=== PATIENT | female | born 1965 | race Caucasian/White ===

== ENCOUNTER 2025-05-08 18:40 | Inpatient (IN) | payer MEDICAID ==
[~2025-05-08] VITALS: Ht 160 cm; Wt 139.3 kg
--- NOTE | 2025-05-08 19:11 | ELECTROCARDIOGRAPH REPORT ---
[facility] [place] Test Date: 2025-05-08 Test Time: 18:45:19 Pat Name: AKHIL ALICEA Department: EMERGENCY ROOM Room: [place] [address] Gender: F Unhairer: JOSEMANUEL : 1965 Requested By: CHARO RODRIGUEZ Order Number: [id number] Reading MD: Dr. RACQUEL Manzanares Measurements Intervals Evans Rate: 80 P: 46 WV: 202 QRS: 68 QRSD: 82 T: 37 QT: 389 QTc: 449 Interpretive Statements Sinus rhythm Low voltage, precordial leads Anteroseptal infarct, old Minimal ST depression, inferior leads Borderline ST elevation, lateral leads Electronically Signed On 05-09-2025 19:40:[address] RACQUEL Manzanares Please click the below link to view image of tracing.
--- NOTE | 2025-05-08 19:13 | Physician Documentation ---
History of Present Illness Chief Complaint: Flank Pain Stated Complaint: TRANSFER NSTEMI Time Seen by MD: 18:55 Primary Medical Doctor: LOIDA SUAZO IN [place] Mode of Arrival: EMS HPI 59-year-old female, transfer from outside hospital with a kidney infection and NSTEMI The patient presented to an outside hospital with abdominal pain. She had an extensive workup which showed findings concerning for pyelonephritis. CT of the abdomen shows normal appendix but does show stranding around the kidney. She was given Levaquin. She also had a significantly elevated troponin, diagnosed with an NSTEMI. She was put on a heparin drip. She was given morphine and Phenergan during transport. Here in the ED, she continues to have right lower abdominal pain. She also reports having some central chest discomfort. She reports a history of esophageal spasms and use the nitroglycerin for that only. She denies history of heart problems. She also does have some current nausea. Medication Reconciliation Allergies: Coded Allergies: NSAIDS (Non-Steroidal Anti-Inflamma (Verified Allergy, Severe, 05/08/25) Penicillins (Verified Allergy, Severe, 05/08/25) Sulfa (Sulfonamide Antibiotics) (Verified Allergy, Severe, 05/08/25) ketorolac (Verified Allergy, Severe, 05/08/25) hydromorphone (Verified Allergy, Intermediate, 05/08/25) aspirin (Verified Allergy, Mild, 05/08/25) Past Medical History Past Medical History: High Cholesterol, Diabetes, Bipolar, Depression Past Surgical History: noncontributory Alcohol Use: None Drug Use: none Review of Systems Constitutional: Denies: fever Cardiovascular: Reports: chest pain Gastrointestinal: Reports: abdominal pain, nausea Physical Exam Vital Signs: Temperature: 97.8, Heart Rate: 81, Respiratory Rate: 16, BP: 147/87, Pulse Oximetry: 96, Weight: 139.300 Oxygen Flow Rate: 2.0 Physical Exam General: This is a pleasant and nontoxic appearing middle-aged woman sitting calmly in bed HEENT: Atraumatic, oropharynx is dry Heart: Regular rate and rhythm, normal-appearing peripheral perfusion Lungs: normal work of breathing, normal oxygen saturation on room air Abdomen: Soft, nondistended, significant tenderness to palpation in the right lower quadrant, with voluntary guarding, otherwise mild tenderness in the suprapubic region Neuro: Alert and oriented Psychiatric: Calm and cooperative with exam Progress Results/Orders Results/Orders Orders - CHARO RODRIGUEZ MD Hs Troponin I W Calculations (05/08/25 19:10) Cbc/Diff (05/08/25 19:10) CMP (05/08/25 19:10) Ondansetron Inj. (Zofran 4mg/2ml Vial) (05/08/25 19:15) Morphine 4mg/Ml Inj. (Morphine Inj.) (05/08/25 19:15) Nitroglycerin Sublingual Tab (Nitrostat (05/08/25 19:15) Completed Orders - CHARO RODRIGUEZ MD Electrocardiogram (05/08/25 19:10) Vital Signs 05/08/25 18:44 Temp 97.8 Pulse 81 Resp 16 B/P (MAP) 147/87 Pulse Ox 96 O2 Flow Rate 2.0 EKG/XRAY/CT/US/VASC/MRI EKG : Additional Comment I personally interpreted the EKG and this shows: Sinus rhythm, rate 80, no STEMI, QTC 449 Consults/PCP Consults/PCP : Additional Comment Consult: I spoke to the internal medicine service, for admission in the hospital Medical Decision Making Additional information obtaine: old records Findings Reviewed outside hospital records and workup Differential Dx:Considerations: Urinary tract infection, Urolithiasis Additional Comments Differential includes NSTEMI, STEMI Assessment The patient presents as a transfer with a kidney infection and NSTEMI. Here in the ED she does have some mild chest discomfort as well as nausea and abdominal pain. She was given nitro, morphine and Zofran. She will have labs repeated including troponin. She will be admitted to the medicine service for further workup and treatment and Cardiology consult. Departure Impression: Primary Impression: NSTEMI (non-ST elevated myocardial infarction) Additional Impression: Pyelonephritis Referrals: NO PRIMARY CARE PROVIDER (PCP) Signature Scribe Signature: na Attestation: CHARO Fragoso MD May 08, 2025 19:13
[2025-05-08] MEDS: ondansetron/PF 4mg/2ml inj IV ONE (19:25)
[2025-05-08] MEDS: morphine 4 MG/ML inj SYRINge IV ONE (19:26)
[2025-05-08 19:49] LABS: MEAN PLATELET VOLUME 8.6 FL (7.4-10.4); RED CELL DISTRIBUTION WIDTH 13.1 % (11.5-14.5)
[2025-05-08 20:09] LABS: CREATININE 0.79 MG/DL (0.40-0.90); TOTAL CARBON DIOXIDE 25.9 MMOL/L (24-32); eCRCL 62 ML/MIN; eGFR 74 ML/MIN
[2025-05-08] MEDS ORDERED: magnesium sulf-water 4G/100mL 100 ML IV PRN (20:50)
[2025-05-08] MEDS: PERFLUTREN PROTEIN-A MICROSPHR (Optison) 0.22 MG/ML 3ML VIAL IV ONE (20:50)
[2025-05-08] MEDS ORDERED: magnesium sulf-water 2g/50mL 50 ML IV PRN (20:50)
[2025-05-08] MEDS ORDERED: magnesium hydroxide 30ml (MOM) UD suspension PO PRN (20:50)
[2025-05-08] MEDS ORDERED: potassium Cl 20 mEq SR tablet PO PRN ×2 (20:50)
[2025-05-08] MEDS ORDERED: potassium Cl 40MEQ/1/2NS 520ml 520 ML IV PRN (20:50)
[2025-05-08] MEDS ORDERED: magnesium Cl slow-release 64mg tablet PO PRN (20:50)
[2025-05-08] MEDS ORDERED: mag hydrox/Alum hydrox/simeth 30ml oral suspension PO PRN (20:50)
[2025-05-08] MEDS ORDERED: DEXTROSE 15 GM of carb/4 tabs (each vial/BOTTLE has 4 tablets) PO PRN ×2 (20:55)
[2025-05-08] MEDS ORDERED: glucagon, human recombinant 1mg kit SUBCUT PRN (20:55)
[2025-05-08] MEDS ORDERED: dextrose 50%-water 50ml dispensing syringe IV PRN ×2 (20:55)
[2025-05-08] MEDS: pantoprazole 40mg Tablet.DR PO SCH (20:55)
--- NOTE | 2025-05-08 21:14 | HISTORY AND PHYSICAL-Residence ---
History & Physical Providers to CC Resident Creating Document: MAYRA TREJO, RES ~ History of Present Illness Primary Medical Doctor: LOIDA SUAZO IN [place] Reason for Admit\\Complaint: NSTEMI and right pyelonephritis History of Present Illness A 59 years old female with a past medical history of hypertension, T2 DM, hyperlipidemia, migraine, RLS, class 4 obesity BMI 54.4, TOMMIE, asthma, cervical spine herniated discs, peripheral neuropathy, s/p YONG+BSO, urinary incontinence, chronic generalized arthritis, bipolar disorder and depression, who was transferred from the [facility] with the concern of having NSTEMI and Right pyelonephritis. Her PCP is at [facility] in [place]. She endorsed that she has noticed the right lower abdominal pain while she was going to the bathroom suddenly, started with intense sharp pain radiating to the back and left lower abd quadrant and radiating down to her inner thigh and private part. She denied for any new urinary frequency urgency, dysuria although she noticed some blood-tinged discharge in her urine. So, she went to the clinic to find out for the possible appendicitis since she had recurrent previous appendix inflammation before presented with the mimicing clinical symptoms but she did not require for any appendectomy at that time. She testedher urine for UTI which was cleared. Over the next 4 days, on this morning, she started vomiting with nausea for several times which was associated with dizziness and lightheadness, and feelings chills but not feverish and rigorous. Her RLQ and lower back pain are getting worse to make her to the ER at [facility] today. She denied for any radiating chest pain with new progressive SOB, orthopnea PND and new bilateral pedal edema. She denied for any Previous Diagnosis with CHF, CAD and ACS before since her last time Stress test was cleared last several years ago although she mentioned that "Familial Angina" run in her family for no reason, and she attributed to her brother who got the "9 times of Heart attack" at the age of early 30s, who did not needed for any CABG or PCIs. As per ER physician, she has a family history of esophageal spasms causing her familial angina which was treating with Nitroglycerin. In [facility], she underwent the CT abdomen and pelvis W/IV contrast s howed slightly delayed left-sided nephrogram with the stranding the fat around the kidney and the ureter. No visible urinary tract stone or hydronephrosis. Differential diagnosis includes pyelonephritis and recently passed kidney stone. No evidence appendicitis. Plain x-ray abdomen supine and upright chest x-ray showed no plain film evidence of bowel obstruction or perforation. No acute cardiopulmonary process. She was found to have critical elevation of troponin level there, an EKG reading showed sinus rhythm without having any ST-T changes at the moment. They initiated IV heparin on transfer process. She was given IV levofloxacin and Flagyl since she has a multiple medications allergies in the ER. In our ER, patient found to have trending up troponin level with 4419 and no changes EKG on repeated rechecked. Allergies: Coded Allergies: NSAIDS (Non-Steroidal Anti-Inflamma (Verified Allergy, Severe, 05/08/25) Penicillins (Verified Allergy, Severe, 05/08/25) Sulfa (Sulfonamide Antibiotics) (Verified Allergy, Severe, 05/08/25) ketorolac (Verified Allergy, Severe, 05/08/25) hydromorphone (Verified Allergy, Intermediate, 05/08/25) aspirin (Verified Allergy, Mild, 05/08/25) Past Medical History Past Medical History hypertension, T2 DM, hyperlipidemia, migraine, RLS, class 4 obesity BMI 54.4, TOMMIE, asthma, cervical spine herniated discs, peripheral neuropathy, urinary incontinence, chronic generalized arthritis, bipolar disorder and depression. She had TAHBSO for the preventive precancerous lesions in her uterus since colon cancer was diagnosed at her mother around age of 58. Her maternal aunt has a cervical cancer but does not have any family history suggestive of Dee syndrome. Past Surgical History Surgical History Comment s/p YONG+BSO Past Social History Social History Comment She only reported that she has a 1-2 puff for cigarette smoking for her migraine, which was once time in five years. She denies using illicit drugs. She denies for drinking alcohol at all. She is currently ambulatory with the aids of walker, electric wheelchair and scooter. Alcohol Use: None Drug Use: None ROS All Other Systems: Reviewed and Negative ROS Constitutional: No fever, dizziness, weakness, weight gain or loss Eyes: No pain, erythema, discharge, blurring of vision ENT: No sore throat, epistaxis, tinnitus Cardiovascular: No chest pain, chest pressure, chest discomfort, palpitations, syncope, lower extremity edema, paroxysmal nocturnal dyspnea Respiratory: No shortness of breath, cough, hemoptysis Gastrointestinal: Normal appetite. No nausea, vomiting, diarrhea, constipation, hematemesis, bloating, melena or fresh blood Genitourinary: No frequency, urgency, nocturia, dysuria Musculoskeletal: No arthralgias or myalgias Integumentary: No change in skin, hair, nails. No swelling, bruising, abrasions Neurologic: No headache, neck pain, weakness Psychiatric: No delusions, depression, loss of interest in normal activity or change in sleep pattern, hallucinations, suicidal ideations Endocrine: No fatigue, weakness, polydipsia, polyuria, change in appetite, heat or cold intolerance, sweating, dry skin Hematological: No bleeding, petechiae, bruising Allergies: No asthma or urticaria Constitutional: Denies: fever Cardiovascular: Reports: chest pain Gastrointestinal: Reports: abdominal pain, nausea Exam Vitals: Vital Signs Date Time Temp Pulse Resp B/P (MAP) Pulse Ox O2 Delivery O2 Flow Rate FiO2 05/08/25 19:26 15 05/08/25 18:44 97.8 81 147/87 96 2.0 General: General: Well alert, well oriented, not confused, not agitated, not in acute distress, well cooperated during the physical. HEENT: HEENT: Conjunctive are pink, sclerae clear, no icterus, pupil is equal in both sides, reactive to light, no ear discharge, no pharyngeal erythema or an edema, mouth and lips are dry. Neck: Neck: Supple, no JVD, no lymphadenopathy and thyromegaly. Chest: Lungs:Equal air entry on both lungs, no additional sounds Cardiovascular: Heart: S1-S2 regular sinus rhythm and, regular rate, no gallops, no rubs, no murmurs Abdomen: Abdomen: No visible peristalsis, Bowel sounds present on auscultation, soft, severe tenderness at the RIF, rebound tenderness, cross tenderness over the LS F, epigastric tenderness, bilateral CVA tenderness especially on the right side, no guarding, no rigidity Extremities: Extremities: No obvious deformities, no pitting edema bilaterally, capillary refill intact, able to wiggle toes both sides, peripheral pulsations are intact on both sides Central Nervous System: OCCUPATIONAL THERAPIST PER DIEM: No focal neurological deficits, no motor and sensory weakness in all 4 extremities, could move all 4 extremities Musculoskeletal: Musculoskeletal: No joint swelling, deformities, inflammations, and no scoliosis and back tenderness Skin: Skin: No active skin lesions and rashes Diagnostic Data Last Recorded Lab Results: 05/08/25193505/08/251935 Advance Care Planning Advanced Care plannin - 30 Minutes Additional Plan A 59 years old female with a past medical history of hypertension, T2 DM, hyperlipidemia, migraine, RLS, class 4 obesity BMI 54.4, TOMMIE, asthma, cervical spine herniated discs, peripheral neuropathy, s/p YONG+BSO, urinary incontinence, chronic generalized arthritis, bipolar disorder and depression, who was transferred from the [facility] with the concern of having NSTEMI and Right pyelonephritis. # Acute abdominal pain 2/2 # Right Pyelonephritis, not meet SIRS criteria -given typical clinical features of acute pyelonephritis, which are supported with the evidence of perinephric fat stranding in the Imaging could demand for the hospital admission for possible IV ABx administration for her complicated Upper UTI. No evidence of obstructive uro infection needed for urology consultation. Plan:- IV Levaquin and Flagyl, to adjust as per pt's respond within 48hrs. -pending Lactic acid and urine C&S result to downgrade the ABx possibly to Ciprofloxacin -Pain control # NSTEMI -HEART score was 6 with moderate risk, with multiple comorbid risk factors raised the concern for NSTEMI to rule out ACS in the presence of DM and Up trending Trops. 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 -To trend trops serially -to recheck the EKG again in the AM -she will calculate ASCVD risk, include lipid lowering agent, for which she is using Repatha injection since regular high-intensity statin were not working effectively on her lipid profile. -cardiovascular risk factor modifications including weight losing plan etc. -cardiology consultation in the morning -continue heparin drip to titrate according to coag profile, monitor bleeding risks and platelet count -sublingual nitroglycerin as needed, p.o. Protonix daily # Hypertension # T2DM # Hyperlipidemia # Class 4 obesity, BMI 54.4 # TOMMIE, RLS # Peripheral Neuropathy # urinary incontinence -initiated hypo hyperglycemic protocol with SQ glargine 10 units at nighttime, sliding scale high dose regimen, to range between the goals of 140 to 180s during hospitalization, to adjust according to the HGB A1c and blood sugar monitoring. -med rec pending -CPAP as necessary for her TOMMIE -referred to well prepared weight losing plan in outpatient setting -she will be beneficial to include SERENE inhibitors for peripheral neuropathy -continue follow up with the urologist in [place], encourage Kegel exercises, and double voiding method. # Declined eGFR -did not have any previous records to compare for the Dx of CKD -CR WNL -monitor the rate of eGFR declining -Suggested Alb Cr ratio, and microalbuminuria in the outpatient # chronic arthritis # cervical spine herniated disc -control pain well -p.o. Tylenol as needed # bipolar disorder # depression -no SI at the moment, under control -med rec pending -no exacerbated manic episode for bipolar CODE STATUS: DNR DNI, established advanced care directive DVT prophylaxis: IV heparin Analgesia/sedation: IV morphine as needed Lines/tubes: PIV GI prophylaxis: Protonix Nutrition: Heart healthy, 75 g carb controlled Prognosis: Guarded Disposition: Continue medical management including IV heparin, IV antibiotics, possible cardiology consultation, pending labs including urine C&S to adjust antibiotics, pain control, med rec pending, PT eval and DC plan. Resident MD attestation: Patient was seen, examined and discussed with attending MD, Dr. Oneyda TREJO MD Internal Medicine Resident, PGY3 [facility] I saw and discussed the pt with the resident team Agree with assessment and plan as documented Thank you Date of Service: May 08, 2025 Billing Provider: FERCHO MEDINA MD, TIN, RES May 08, 2025 21:14 FERCHO MEDINA MD May 09, 2025 02:21
[2025-05-08 21:20] LABS: APTT 37 SECONDS (22-32); INR 1.1 INR
[2025-05-08 21:26] LABS: PRO BRAIN NATRIURETIC PEPTIDE 526 PG/ML (0-125)
--- NOTE | 2025-05-08 22:16 | RADIOLOGY REPORT ---
EXAM: DI CHEST,SINGLE VIEW TECHNIQUE: Single frontal chest radiograph CLINICAL HISTORY: HTN COMPARISON: None FINDINGS/IMPRESSION: The lungs are clear. The cardiomediastinal silhouette is prominent, likely accentuated by technique. No pleural effusion or pneumothorax. No acute osseous abnormality.
[2025-05-08] MEDS: ipratropium/albuterol 3ml nebule NEB PRN (22:17)
[2025-05-08 22:20] VITALS: PULSE 74; RESP 18; O2SAT 97
[2025-05-08 22:27] VITALS: PULSE 77; RESP 16
[2025-05-08] MEDS: INSULIN LISPRO 100 UNIT/ML INSULN.PEN MULTI-DOSE SQ SCH (23:36)
[2025-05-08] MEDS: insulin glargine (Lantus) pen - multi-dose SQ SCH (23:38)
[2025-05-09] VITALS (14 sets, daily range): BP systolic 103–151; BP diastolic 49–72; PULSE 70–83; RESP 16–20; TEMP 97.3–98.3; O2SAT 96–100
[2025-05-09] MEDS: heparin 10,000 units/1 ML INJ IV ONE (01:44)
[2025-05-09] MEDS ORDERED: heparin 25,000 UNIT/250ml bag 250 ML IV PRN (01:45)
[2025-05-09] MEDS ORDERED: heparin 10,000 units/1 ML INJ IV ONE (02:00)
[2025-05-09 02:50] LABS: APTT 33 SECONDS (22-32); INR 1.1 INR
[2025-05-09] MEDS: MESSAGE TO NURSING IV ONE ×4 (03:01→18:29)
[2025-05-09] MEDS: heparin 10,000 units/1 ML INJ IV PRN (03:23)
[2025-05-09] MEDS: metroNIDAZOLE-Flagyl 500mg/NS 100 ML IV SCH (07:26)
[2025-05-09] MEDS: levoFLOXACIN-Levaquin 750MG/D5 150 ML IV SCH (07:26)
[2025-05-09] MEDS: K and/or MAG REPLACEMENT MC SCH (07:30)
[2025-05-09] MEDS: docusate sod 100mg capsule PO SCH (07:30)
[2025-05-09] MEDS ORDERED: metoprolol tartrate 1mg/ml inj IV PRN (08:10)
[2025-05-09] MEDS ORDERED: aminophylline 250mg/10ml inj. IV PRN (08:10)
[2025-05-09] MEDS ORDERED: CYCL1DRO LEFTEYE (08:33)
[2025-05-09] MEDS ORDERED: INSU100C4 SQ (08:33)
[2025-05-09] MEDS ORDERED: FLUT16SP26 BOTHNARES (08:33)
[2025-05-09] MEDS ORDERED: CYCL10TA26 PO (08:33)
[2025-05-09] MEDS ORDERED: BREX1TAB PO (08:33)
[2025-05-09] MEDS ORDERED: FURO-150 PO (08:33)
[2025-05-09] MEDS ORDERED: VIBE75TA PO (08:33)
[2025-05-09] MEDS ORDERED: HYDR-3973 PO (08:33)
[2025-05-09] MEDS ORDERED: CALC-106 PO (08:33)
[2025-05-09] MEDS ORDERED: PANT40TA54 PO (08:33)
[2025-05-09] MEDS ORDERED: DIPH-186 PO (08:33)
[2025-05-09] MEDS ORDERED: NITR0.4T51 SL (08:33)
[2025-05-09] MEDS ORDERED: MAGN400T29 PO (08:33)
[2025-05-09] MEDS ORDERED: CYCL1DRO RIGHTEYE (08:33)
[2025-05-09] MEDS ORDERED: CETI10TA19 PO (08:33)
[2025-05-09] MEDS ORDERED: NYSPWD TP (08:33)
[2025-05-09 09:54] LABS: MEAN PLATELET VOLUME 8.7 FL (7.4-10.4); RED CELL DISTRIBUTION WIDTH 13.1 % (11.5-14.5)
[2025-05-09 10:07] LABS: CHOL/HDL RATIO 3.4 (0.00-4.99); CREATININE 1.20 MG/DL (0.40-0.90); LDL CHOLESTEROL 90 MG/DL (50-100); TOTAL CARBON DIOXIDE 26.0 MMOL/L (24-32); eCRCL 41 ML/MIN; eGFR 46 ML/MIN
[2025-05-09 10:36] LABS: LEUKOCYTE ESTERASE ,URINE TRACE (Neg); NITRITES, URINE NEGATIVE (Neg); OCCULT BLOOD,URINE SMALL (Neg)
[2025-05-09 10:40] LABS: UA COLLECTION TYPE OTHER
[2025-05-09] MEDS: ondansetron/PF 4mg/2ml inj IV PRN (10:42)
[2025-05-09 10:44] LABS: MUCUS STRANDS NONE SEEN /LPF (Neg); SQUAMOUS EPITHELIAL CELL,UR MODERATE /LPF (FEW)
[2025-05-09 10:45] LABS: WBC CLUMPS,URINE MODERATE /HPF (NEGATIVE)
[2025-05-09] MEDS: regadenoson 0.4mg/5ml syringe IV PRN (11:38)
--- NOTE | 2025-05-09 14:23 | RADIOLOGY REPORT ---
Reason for study/Clinical History: NSTEMI Comparison Study: None Myocardial Perfusion Study with SPECT TECHNIQUE: The patient received an intravenous injection of 8.7 mCi of technetium-99m Sestamibi while at rest. After a short delay, SPECT tomographic images of the heart were obtained. The patient then went to the stress lab where they received an intravenous Lexiscan utilizing standard protocol. 35.1 mCi of technetium-99m Sestamibi was injected intravenously immediately after the start of the infusion. Gated SPECT tomographic images of the heart were acquired and processed. FINDINGS: Rotating planar images show no significant attenuation artifact. The left ventricular size is within normal limits. Mild persistent defect is present in the anterior wall. The left ventricular ejection fraction is 53 %. (normal greater than 50%) IMPRESSION: Mild persistent defect is present in the anterior wall. This is felt to most likely represent artifact versus possible chronic infarct. No reversible findings to suggest acute ischemia. Clinical correlation advised. Left ventricular ejection fraction 53%.
[2025-05-09] MEDS ORDERED: LORA-269 PO (15:21)
[2025-05-09] MEDS ORDERED: LOSA-418 PO (15:22)
--- NOTE | 2025-05-09 18:55 | CARDIOLOGY REPORT ---
APPROVED REPORT EXAM: Comprehensive 2D, Doppler, and color-flow Echocardiogram. Patient Location: 302 Heart Rate: 79 bpm Rhythm: Sinus Indications Chest Pain NSTEMI (Transfer) Troponin: 4180, 3831 CARDIOLOOGIST: BV. Glenna MD (Consulted) No Previous ECHO at [facility] 2D Dimensions LA Diam 3.8 cm IVSd 1.6 (0.7-1.1cm) LVDd 4.4 cm PWd 1.2 (0.7-1.1cm) IVSs 1.7 (0.8-1.2cm) LVDs 2.8 (2.5-4.0cm) PWs 2.1 (0.8-1.2cm) LVOT Diameter 2.18 (1.8-2.4cm) LVEF(%) 69.5 (>50%) Ao Asc Diam. 3.08 cm IVC 20.89 mm FS (%) 38.6 % SV 43.6 ml CO 3.4 L/min M-Mode Dimensions Left Atrium(MM) 4.12 (2.5-4.0cm) Aortic Root 3.50 (2.2-3.7cm) Aortic Cusp Exc 1.83 (1.5-2.0cm) Aortic Valve AoV Peak Magdi. 181.8 cm/s AoV VTI 35.1 cm AO Peak GR. 13.2 mmHg AO Mean GR. 8 mmHg LVOT VTI 26.34 cm LVOT Peak Magdi. 113.2 cm/s DRE(VTI)/BSA 2.80 cm2/m2 DRE (VTI) 2.80 cm2 AV DI 0.75 % Mitral Valve MV E Velocity 88.0 cm/s MV Peak Gr. 5 mmHg MV DECEL TIME 204 ms MV A Velocity 102.3 cm/s MV PHT 92 ms E/A Ratio 0.9 MVA (PHT) 2.39 cm2 MV VMax 107.3 cm/s TDI Lateral E' P. V 9.01 cm/s E/Lateral E' 9.8 Tricuspid Valve TR P. Velocity 171 cm/s RAP ESTIMATE 10 mmHg TR Peak Gr. 12 mmHg RVSP 22 mmHg LEFT VENTRICLE Normal LV size and function. Mild concentric hypertrophy. Overall LVEF is 70%. RIGHT VENTRICLE Right ventricle appears mildly dilated with adequate function. ATRIA The left atrium size is normal. AORTIC VALVE Trileaflet AV appears mildly sclerotic without stenosis. No insufficiency by color and spectral flow Doppler. MITRAL VALVE Mild mitral annular calcification without stenosis. Mild regurgitation. TRICUSPID VALVE The tricuspid valve is normal in structure with trace regurgitation. PULMONIC VALVE Pulmonic valve is grossly normal in structure with physiologic insufficiency. GREAT VESSELS The aortic root is normal in size. The ascending aorta is normal in size. IVC is dilated and collapses less than 50% with inspiration. PERICARDIUM Normal pericardium. No effusion. Anterior epicardial fat pad is present. Other Information Study Quality: Fair due to body habitus Conclusion Overall LVEF is 70%. Normal LV size and function. Mild concentric hypertrophy. Right ventricle appears mildly dilated with adequate function. Trileaflet AV appears mildly sclerotic without stenosis. No insufficiency by color and spectral flow Doppler. Mild mitral annular calcification without stenosis. Mild regurgitation. The tricuspid valve is normal in structure with trace regurgitation. Pulmonic valve is grossly normal in structure with physiologic insufficiency. Normal pericardium. No effusion. Anterior epicardial fat pad is present.
[2025-05-09] MEDS ORDERED: cycloSPORINE 0.05% ophthalmic emulsion RIGHTEYE SCH (20:00)
--- NOTE | 2025-05-09 20:37 | PROGRESS NOTE ---
Daily Progress Note Providers to CC ~ Antibiotic Timeout Antibiotic Ordered?: Yes Subjective The patient is Lexiscan stress test is negative and the patient is chest pain- free echocardiogram has been obtained the patient remains on a heparin drip. I did speak to on-call knotting machine operator's Dr. Manzanares and discussed the case with Cardiology. Objective Vital Signs Date Time Temp Pulse Resp B/P (MAP) Pulse Ox O2 Delivery O2 Flow Rate FiO2 05/09/25 16:58 19 96 Nasal Cannula 2.0 05/09/25 15:54 70 28 05/09/25 14:47 98.3 118/66 (83) Result Diagram: 05/09/25 0937 05/09/25 0937 Gen. No acute distress alert and oriented 4, morbidly obese Lungs clear to ascultation bilaterally, no wheezes rales or rhonchi appreciated Heart normal sinus rhythm no murmurs rubs or clicks noted Abdomen soft nontender bowel sounds are normoactive Lower extremities no clubbing cyanosis, nor edema appreciated bilaterally Coagulation Studies Laboratory Tests Test 05/09/25 02:21 05/09/25 17:14 Prothrombin Time 11.0 SECONDS (9.0-12.0) INR International Normalized Ratio 1.1 INR Activated Partial Thromboplast Time 33 SECONDS (22-32) H APTT (Heparin Protocol) 44 SECONDS (45-60) L Coagulation Comments Problem\Assessment\Plan Problems/Diagnosis: (1) Pyelonephritis # Right Pyelonephritis, not meet SIRS criteria On IV Levaquin and IV Flagyl # NSTEMI versus type 2 mi Troponins are downtrending and the patient is chest pain-free Lexiscan stress test is negative Remains on heparin drip I spoke this morning with Dr. Manzanares on-call knotting machine operator's who will evaluate the patient # Hypertension # T2DM # Hyperlipidemia # Class 4 obesity, BMI 54.4 # TOMMIE, RLS # Peripheral Neuropathy # urinary incontinence -initiated hypo hyperglycemic protocol with SQ glargine 10 units at nighttime, sliding scale high dose regimen, to range between the goals of 140 to 180s during hospitalization, to adjust according to the HGB A1c and blood sugar monitoring. -med rec pending -CPAP as necessary for her TOMMIE -referred to well prepared weight losing plan in outpatient setting -she will be beneficial to include SERENE inhibitors for peripheral neuropathy -continue follow up with the urologist in [place], encourage Kegel exercises, and double voiding method. # chronic arthritis # cervical spine herniated disc -control pain well -p.o. Tylenol as needed # bipolar disorder # depression -no SI at the moment, under control -continue Rexulti -no exacerbated manic episode for bipolar Date of Service: May 09, 2025 Billing Provider: RACHEL TOLBERT DO Common Visit Codes: [id number] INP/OBS CARE(HIGH) RACHEL TOLBERT DO May 09, 2025 20:37
[2025-05-09] MEDS: cycloSPORINE 0.05% ophthalmic emulsion EACHEYE SCH (22:46)
[2025-05-09] MEDS: morphine 4 MG/ML inj SYRINge IV PRN (23:21)
[2025-05-10 00:15] LABS: MEAN PLATELET VOLUME 8.4 FL (7.4-10.4); RED CELL DISTRIBUTION WIDTH 13.1 % (11.5-14.5)
[2025-05-10 00:32] LABS: CREATININE 1.02 MG/DL (0.40-0.90); TOTAL CARBON DIOXIDE 26.5 MMOL/L (24-32); eCRCL 48 ML/MIN; eGFR 55 ML/MIN
[2025-05-10 02:00] VITALS: BP 101/56; PULSE 70; RESP 16; TEMP 97.1; O2SAT 95
[2025-05-10] MEDS: heparin 25,000 UNIT/250ml bag 250 ML IV PRN (03:00)
[2025-05-10] MEDS: HYDROcodone/acetaminophen 10/325mg tab PO PRN (05:54)
[2025-05-10 06:00] VITALS: BP 96/61; PULSE 67; RESP 12; TEMP 97.8; O2SAT 98
[2025-05-10] MEDS: MESSAGE TO NURSING IV ONE (06:37)
[2025-05-10] MEDS: VIBEGRON 75 MG PO SCH (08:00)
[2025-05-10 08:23] VITALS: PULSE 74; RESP 16; O2SAT 98
[2025-05-10] MEDS: pantoprazole 40mg Tablet.DR PO SCH (09:10)
[2025-05-10 11:00] VITALS: BP 112/60; PULSE 72; RESP 13; TEMP 97.4; O2SAT 97
[2025-05-10] MEDS ORDERED: SACC250C PO (12:20)
[2025-05-10] MEDS ORDERED: METR-159 PO (12:20)
[2025-05-10] MEDS ORDERED: METO-384 PO (12:20)
[2025-05-10] MEDS ORDERED: LEVO750T68 PO (12:20)
[2025-05-10] MEDS ORDERED: CLOP-32 PO (12:20)
[2025-05-10] MEDS ORDERED: MESSAGE TO NURSING IV ONE (13:05)
--- NOTE | 2025-05-10 19:25 | DISCHARGE SUMMARY ---
Discharge Summary Providers to CC ~ Discharge Summary Admission Diagnosis: Pyelonephritis and NSTEMI Hospital Course DATE OF ADMISSION: 05/08/2025 DATE OF DISCHARGE: 05/10/2025 Discharge Diagnosis\\Comment: Right-sided pyelonephritis, type 2 mi, hypertension, nzu-nkiyahy-poidyqker diabetes mellitus, obstructive sleep apnea, class four obesity, bipolar disorder/ depression Operations\\Procedures: None Consultants: Dr. Manzanares entertainment manager Complications: None Condition on DC: Stable New Medications: Clopidogrel Bisulfate (Plavix) 75 Mg Tablet 1 TAB PO DAILY for 30 Days, #30 TAB 1 Refill Levofloxacin (Levofloxacin) 750 Mg Tablet 750 MG PO DAILY, #7 TAB Metoprolol Succinate (Metoprolol Succinate) 50 Mg Tab.sr.24h 1 TAB PO DAILY for 30 Days, #30 TAB 0 Refills Metronidazole* (Flagyl*) 500 Mg Tablet 1 TAB PO Q8H for 7 Days, #21 TAB Saccharomyces Boulardii (Florastor) 250 Mg Capsule 1 CAP PO Q12H for loose stool for 10 Days, #20 CAP 0 Refills Continued Medications: Brexpiprazole (Rexulti) 1 Mg Tablet 1 TAB PO DAILY for 30 Days, #30 TAB 0 Refills Calcium Carb/Vit D3/Minerals (Calcium 600+D Plus Minerals Tb) 600 Mg Calcium-400 Unit Tablet 1 TAB PO Q12H for 30 Days, #60 TAB 0 Refills Cetirizine HCl (Cetirizine HCl) 10 Mg Tab.chew 1 TAB PO DAILY for allergy symptoms for 30 Days, #30 TAB 0 Refills Cyclobenzaprine HCl (Cyclobenzaprine HCl) 10 Mg Tablet 1 TAB PO PRN for 10 Days, #30 TAB 0 Refills Cyclosporine (Restasis) 0.05 % Droperette 1 DROP LEFTEYE Q12H for 30 Days, #60 EA Cyclosporine (Restasis) 0.05 % Droperette 1 DROP RIGHTEYE Q12H for 30 Days, #60 EA Diphenoxylate HCl/Atropine (Lomotil 2.5-0.025 mg Tablet) 2.5 Mg-0.025 Mg Tablet 1 TAB PO PRN for 5 Days, #20 TAB 0 Refills Fluticasone Propionate (Fluticasone Propionate) 50 Mcg/Actuation [place].susp 1 SPRAYS BOTHNARES PRN, #16 GM 0 Refills Furosemide* (Lasix*) 20 Mg Tablet 1 TAB PO DAILY for 30 Days, #30 TAB Hydrocodone Bit/Acetaminophen (Hydrocodone-Apap 10-325 Tablet) 10mg/325mg Tablet 1 TAB PO QD PRN PRN for pain for 5 Days, #20 TAB Insulin Aspart (Novolog) 100 Unit/Ml Cartridge 100 UNIT SQ, UNIT Lorazepam (Ativan) 1 Mg Tablet 1 TAB PO Q12H PRN PRN for anxiety for 30 Days, #60 TAB 0 Refills Losartan Potassium (Cozaar) 100 Mg Tablet 1 TAB PO DAILY for 30 Days, #30 TAB 0 Refills Magnesium Oxide (Magox 400) 400 Mg (241.3 Mg Magnesium) Tablet 1 TAB PO DAILY for 30 Days, #30 TAB 0 Refills Nitroglycerin SL* (Nitrostat SL*) 0.4 Mg Tablet 1 TAB SL UD for chest pain, #25 TAB 1st sign of attack; may repeat every 5 mins; if pain persists after 3 in 15 min, medical attention is recommended Nystatin (NYSTOP powder) 100,000 Unit/Gram Gra 1 APPLIC TP, GM Pantoprazole Sodium (Pantoprazole Sodium) 40 Mg Tablet.dr 1 TAB PO DAILY for 30 Days, #30 TAB 0 Refills Vibegron (Gemtesa) 75 Mg Tablet 1 TAB PO DAILY for 30 Days, #30 TAB 0 Refills Discharge Summary: The patient is admitted by resident physician MAYAR Gonzales , under the supervision of FERCHO Londono MD with the following HPI:"A 59 years old female with a past medical history of hypertension, T2 DM, hyperlipidemia, migraine, RLS, class 4 obesity BMI 54.4, TOMMIE, asthma, cervical spine herniated discs, peripheral neuropathy, s/p YONG+BSO, urinary incontinence, chronic generalized arthritis, bipolar disorder and depression, who was transferred from the [facility] with the concern of having NSTEMI and Right pyelonephritis. Her PCP is at [facility] in [place]. She endorsed that she has noticed the right lower abdominal pain while she was going to the bathroom suddenly, started with intense sharp pain radiating to the back and left lower abd quadrant and radiating down to her inner thigh and private part. She denied for any new urinary frequency urgency, dysuria although she noticed some blood-tinged discharge in her urine. So, she went to the clinic to find out for the possible appendicitis since she had recurrent previous appendix inflammation before presented with the mimicing clinical symptoms but she did not require for any appendectomy at that time. She testedher urine for UTI which was cleared. Over the next 4 days, on this morning, she started vomiting with nausea for several times which was associated with dizziness and lightheadness, and feelings chills but not feverish and rigorous. Her RLQ and lower back pain are getting worse to make her to the ER at [facility] today. She denied for any radiating chest pain with new progressive SOB, orthopnea PND and new bilateral pedal edema. She denied for any Previous Diagnosis with CHF, CAD and ACS before since her last time Stress test was cleared last several years ago although she mentioned that "Familial Angina" run in her family for no reason, and she attributed to her brother who got the "9 times of Heart attack" at the age of early 30s, who did not needed for any CABG or PCIs. As per ER physician, she has a family history of esophageal spasms causing her familial angina which was treating with Nitroglycerin. In [facility], she underwent the CT abdomen and pelvis W/IV contrast showed slightly delayed left-sided nephrogram with the stranding the fat around the kidney and the ureter. No visible urinary tract stone or hydronephrosis. Differential diagnosis includes pyelonephritis and recently passed kidney stone. No evidence appendicitis. Plain x-ray abdomen supine and upright chest x-ray showed no plain film evidence of bowel obstruction or perforation. No acute cardiopulmonary process. She was found to have critical elevation of troponin level there, an EKG reading showed sinus rhythm without having any ST-T changes at the moment. They initiated IV heparin on transfer process. She was given IV levofloxacin and Flagyl since she has a multiple medications allergies in the ER. In our ER, patient found to have trending up troponin level with 4419 and no changes EKG on repeated rechecked." High sensitivity troponins to downtrend in the 3rd troponin was 3031 the patient has a Lexiscan stress test which demonstrated a mild persistent defect in the anterior wall however no reversible findings to suggest acute ischemia and the patient was chest pain-free. The patient is echocardiogram demonstrated LVEF of 70% right-sided heart pressures were 22 mm Hg there were no moderate to significant valve abnormalities. I discussed the case with Dr. Manzanares on-call entertainment manager who recommended discharging the patient on Plavix and aspirin however the patient has not allergy to aspirin and thus we will be just on Plavix. The patient has a cholesterol panel with a triglycerides 148 a total cholesterol 139 with a LDL of 90 cardiology recommended high dose of statin the patient is states that is statins are ineffective for which Cardiology recommended adding Zetia to the patient's home injection of Repatha the patient informs me that Repatha has been helping and working however the addition of Zetia in the past was ineffective and the patient did not want to start this medication either I did start the patient on metoprolol succinate as well. The patient has pyelonephritis on CT scan in [place] the patient was discharged with a prescription for levofloxacin 750 mg daily x7 days and metronidazole 500 mg p.o. q.8 hours x7 days the patient did receive IV antibiotics of levofloxacin and metronidazole while hospitalized. The patient has tvn-yekyrtk-tnvhwjesg diabetes mellitus- her hemoglobin A1c 6.4 and the blood sugars were controlled during hospitalization. The patient has a obstructive sleep apnea however speaking with the patient she did not tolerate the mask as the patient is claustrophobic and the patient did not do well with a nasal pillow as there was not a tight seal and the patient ended up developing a nosebleed that required cauterization. Gen. No acute distress alert and oriented 4, morbidly obese Lungs clear to ascultation bilaterally, no wheezes rales or rhonchi appreciated Heart normal sinus rhythm no murmurs rubs or clicks noted Abdomen soft nontender bowel sounds are normoactive Lower extremities no clubbing cyanosis, nor edema appreciated bilaterally The patient felt ready to be discharged and was medically cleared to be discharged on 05/10/2025 The patient was seen and evaluated on day of discharge. Time spent on discharge 40 minutes- the patient is recommended to follow up with her primary care provider and returned to the ED if she develops severe chest pain or shortness of breath. *Problems/Diagnosis: (1) Pyelonephritis Status: Acute Total Time Spent on D/C: > 30 Minutes Date of Service: May 10, 2025 Billing Provider: RACHEL TOLBERT DO Common Visit Codes: 28416-PVR/OBS DISCH DAY >30min RACHEL TOLBERT DO May 10, 2025 19:25
--- NOTE | 2025-05-11 08:28 | CONSULTATION ---
DATE OF CONSULTATION: 05/10/2025 DICTATING PHYSICIAN: RACQUEL Manzanares MD CARDIOLOGY CONSULTATION REQUESTING PHYSICIAN: Dr. Woody Gorman. CARDIOLOGY: RACQUEL Manzanares MD IDENTIFICATION: This is a 59-year-old female who came in with pyelonephritis and some elevation of troponin. HISTORY OF PRESENT ILLNESS: The patient is a 59-year-old morbidly obese female with diabetes, hypertension, hyperlipidemia, restless legs syndrome class 4 obesity, BMI 54.4, obstructive sleep apnea, bronchial asthma, spine herniated disk, peripheral neuropathy, urinary incontinence, chronic generalized arthritis, bipolar disorder, and depression who went to [facility] with abdominal pain. There was some concern about pyelonephritis and the CT scan of the abdomen showed normal appendix, but some stranding around the kidney. She was given Levaquin. She had a significant elevated troponin and was transferred to [facility]. When she came in, troponin was 4419, which dropped down to 3831, but the patient denied any chest pain. The patient normally lives in [place] with her daughter and grandson. She used to work for an [employer] worker with multiple comorbidities. She quit working at age 28, ambulates with a walker around the trailer. She has been using a K-walker since 2009, walks about half a block. She reports dyspnea while going uphill. No history of sustained palpitations or syncopal episode. No history of chest pain or prior history of myocardial infarction or congestive heart failure. The patient does have sleep apnea for the last 15 years and has not been able to use CPAP. PAST MEDICAL HISTORY: As mentioned above. * Diabetes. * Hypertension. * Hyperlipidemia. * Morbid obesity. * Obstructive sleep apnea. * DJD. PAST SURGICAL HISTORY: Total abdominal hysterectomy and oophorectomy and then she had gallbladder removal, bilateral carpal tunnel surgery. She had right knee arthroscopic surgery x 2. FAMILY HISTORY: Her father at age 80 because of old age and mother at age 60 because of colon cancer. SOCIAL HISTORY: The patient smoked from age 14 to 53. No history of alcohol intake. No history of substance abuse. REVIEW OF SYSTEMS: HEENT: Wears reading glasses, mild hearing impairment. RESPIRATORY: Exertional shortness of breath. MUSCULOSKELETAL: Arthralgias. CENTRAL NERVOUS SYSTEM: No strokes, TIA, or seizures. PSYCHIATRIC: Bipolar disorder. MEDICATIONS: Her medications at home include brexpiprazole 1 mg p.o. daily, calcium, cetirizine, Plavix 75 mg p.o. daily, cyclobenzaprine, cyclosporine, eye ointment, fluticasone inhalers, Lasix 20 mg p.o. daily, hydrocodone, insulin, levofloxacin, lorazepam, losartan 100 mg p.o. daily, magnesium oxide, metoprolol 50 mg succinate once a day, metronidazole, , nystatin, vibegron 75 mg p.o. daily. PHYSICAL EXAMINATION: GENERAL: On examination, the patient is a 59-year-old morbidly obese female, comfortable at rest. No chest pain. HEENT: Pupils are equal and reactive. Oral mucosa moist. Head atraumatic. NECK: Supple. No jugular venous distention. Carotids are equally well felt. VITAL SIGNS: Temperature 97.4, pulse 72, blood pressure 112/60. CARDIAC: Regular in rate and rhythm. S1 and S2 normal. No S3, S4 or murmur. LUNGS: Decreased breath sounds bibasilar. ABDOMEN: Morbidly obese. . EXTREMITIES: Trace edema. LABORATORY DATA: Labs include sodium 138, potassium 4.3, chloride 107, carbon dioxide 27, BUN 20, creatinine 1.02. WBC 9, hemoglobin 11.4, hematocrit 34.41, and platelet count 264. DIAGNOSTIC DATA: Echocardiogram showed ejection fraction of 70% and no segmental wall motion abnormalities. EKG, normal sinus rhythm, no significant ST deviation. IMPRESSION AND PLAN: * A 59-year-old postmenopausal female with pyelonephritis being treated. * Mild elevated troponin with no chest pain. Echocardiogram showed no wall motion abnormalities. Myocardial perfusion scan showed no reversible ischemia. Small anterior defect was thought to be related to her body habitus and breast artifact. This finding was discussed in detail with the patient. Continue Plavix and beta blockers. * Diabetes, hypertension, hyperlipidemia. Extensively counseled on the coronary risk factor modification to keep LDL less than 65 mg%. The patient is on Repatha. Keep blood pressure less than 30 mmHg. Hemoglobin less than 7%. * Other comorbidities include obstructive sleep apnea, morbid obesity, urinary incontinence, degenerative joint disease, and peripheral neuropathy. Patient was extensively counseled on coronary risk factor modification like maintaining ideal body weight, keeping LDL less than 55 mg %, regular exercise program Besides taking care of other comorbidities. Patient to follow up with her PMD and if necessary wrecking supervisor if her symptoms get worse. RACQUEL Manzanares MD TID: [id number] RECEIPT: [id number] ITZ/ELOY WILKINSON
== END 2025-05-10 14:52 | disposition home or self-care (01) | DRG 463 ==
LOC: ER 18:40 → ED HOLD 20:04 → PCU 3S 05-09 14:44
PROVIDERS: ADMIT Internal Medicine; ATTEND Family Medicine
PROC: 4A02XM4 Measurement of Cardiac Total Activity, External Approach (ICD-10-PCS; principal; 2025-05-09)
PROC: 3E033HZ Introduction of Radioactive Substance into Peripheral Vein, Percutaneous Approach (ICD-10-PCS; 2025-05-09)
DX: N12 Tubulo-interstitial nephritis, not specified as acute or chronic (principal); I21.A1 Myocardial infarction type 2; Z79.02 Long term (current) use of antithrombotics/antiplatelets; E11.42 Type 2 diabetes mellitus with diabetic polyneuropathy; F31.9 Bipolar disorder, unspecified; G25.81 Restless legs syndrome; I10 Essential (primary) hypertension; J45.909 Unspecified asthma, uncomplicated; E66.01 Morbid (severe) obesity due to excess calories; E78.00 Pure hypercholesterolemia, unspecified; G47.33 Obstructive sleep apnea (adult) (pediatric); R32 Unspecified urinary incontinence; Z68.43 Body mass index [BMI] 50.0-59.9, adult; Z80.0 Family history of malignant neoplasm of digestive organs; Z87.891 Personal history of nicotine dependence
CPT/HCPCS: 36415; 71045; 78452; 80053; 80061; 81001; 82948; 83036; 83605; 83735; 83880; 84145; 84443; 84484; 85025; 85610; 85730; 87040; 87081; 87088; 93005; 93017; 93306; 94640; 94760; 99285; A9500; G0378; J1644; J1815; J1956; J2270; J2405; J2785; J3490; J7040